=== PATIENT | female | born 1975 | race Caucasian/White ===

== ENCOUNTER 2018-12-05 17:39 | Emergency (ER) | payer OTHER ==
[2018-12-05] MEDS: ALPRAZOLAM 0.25 MG TAB PO (19:50)
== END 2018-12-05 20:05 | disposition home or self-care (01) ==
LOC: FTE 20:05
DX: F41.0 Panic disorder [episodic paroxysmal anxiety] (principal)
CPT/HCPCS: 99283; Z7502